=== PATIENT | male | born 1980 | race Caucasian/White ===

== ENCOUNTER 2016-11-23 02:50 | Emergency (ER) | payer MEDICAID ==
[~2016-11-23] VITALS: Ht 182.9 cm; Wt 96.0 kg
[2016-11-23 04:51] VITALS: BP 123/73
[2016-11-23 05:17] LABS: BLOOD UREA NITROGEN 10 mg/dL (7-18)
[2016-11-23 05:21] LABS: ASPARTATE AMINO TRANSFERASE 42 U/L (15-37)
== END 2016-11-23 05:41 | disposition home or self-care (01) ==
LOC: ED 05:20
DX: R42 Dizziness and giddiness (principal); R30.0 Dysuria
CPT/HCPCS: 36415; 71020; 80053; 85025; 93005

== ENCOUNTER 2016-11-24 13:30 | Emergency (ER) | payer MEDICAID ==
[~2016-11-24] VITALS: Ht 182.9 cm; Wt 94.8 kg
[2016-11-24 15:30] VITALS: BP 132/84
== END 2016-11-24 15:35 | disposition left against medical advice (07) ==
LOC: ED 15:29
DX: Z53.21 Procedure and treatment not carried out due to patient leaving prior to being seen by health care provider (principal)
CPT/HCPCS: 93005

== ENCOUNTER 2016-11-24 15:38 | Emergency (ER) | payer MEDICAID ==
[~2016-11-24] VITALS: Ht 182.9 cm; Wt 94.1 kg
[2016-11-24 16:41] LABS: BLOOD UREA NITROGEN 9 mg/dL (7-18)
[2016-11-24 17:37] LABS: IS PT STATUS REG ER OR PRE ER? YES
[2016-11-24 17:45] VITALS: BP 117/80
== END 2016-11-24 19:02 | disposition home or self-care (01) ==
LOC: ED 18:56
DX: R06.00 Dyspnea, unspecified (principal); R42 Dizziness and giddiness; R07.89 Other chest pain
CPT/HCPCS: 36415; 71020; 80048; 82040; 84484; 85025; 85379; 93005; 99285